=== PATIENT | female | born 1955 ===

== ENCOUNTER 2024-11-23 13:05 | Emergency (ER) | payer OTHER ==
[~2024-11-23] VITALS: Ht 160 cm; Wt 62.6 kg
[2024-11-23] MEDS ORDERED: AMLODIPINE-OLM1 EAC3 (13:08)
[2024-11-23 13:11] VITALS: BP 121/78; O2SAT 98
[2024-11-23] MEDS ORDERED: CEFTRIAXONE SODIUM 1,000 MG VIAL IM ONE (13:45)
[2024-11-23] MEDS ORDERED: LIDOCAINE HCL 1% 10ML VIAL PERCUT ONE (13:45)
[2024-11-23] MEDS ORDERED: KETOROLAC TROMETHAMINE 60 MG VIAL IM ONE ×2 (13:45→14:40)
[2024-11-23] MEDS ORDERED: LIDOCAINE HCL 1% 10ML VIAL ONE (14:40)
[2024-11-23] MEDS ORDERED: CEFTRIAXONE SODIUM 1,000 MG VIAL ONE (14:41)
[2024-11-23] MEDS ORDERED: CEFUROXIME500 MG PO (15:49)
[2024-11-23] MEDS ORDERED: PEPCID AC20 MG PO (15:49)
== END 2024-11-23 16:35 | disposition home or self-care (01) ==
LOC: ER 13:05
DX: S01.111A Laceration without foreign body of right eyelid and periocular area, initial encounter (principal); S00.03XA Contusion of scalp, initial encounter; V49.9XXA Car occupant (driver) (passenger) injured in unspecified traffic accident, initial encounter; Y93.89 Activity, other specified; Y92.413 State road as the place of occurrence of the external cause; Y99.8 Other external cause status; M51.369 Other intervertebral disc degeneration, lumbar region without mention of lumbar back pain or lower extremity pain; I10 Essential (primary) hypertension